=== PATIENT | female | born 2005 | race African-American/Black ===

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

== ENCOUNTER 2024-01-04 15:54 | Emergency (ER) | payer OTHER, SELFPAY ==
[2024-01-04 16:01] VITALS: BP 120/80; PULSE 115; RESP 20; TEMP 37.1; O2SAT 100
--- NOTE | 2024-01-04 16:39 | ED.URI ---
HPI - URI/Sore Throat General Chief Complaint: Upper Respiratory Infection Stated Complaint: SORE THROAT Time Seen by Provider: 01/04/24 16:29 Source: patient, RN notes reviewed and old records reviewed Mode of arrival: ambulatory Limitations: no limitations History of Present Illness HPI Narrative: Patient presents today complaining of a one-month history of sore throat, headache, nausea, chills, fatigue cough postnasal drip. She was initially seen at [facility] on 12/06/2023 where her rapid strep was negative, but she was treated with a course of amoxicillin for tonsillitis. States her body symptoms improved, but her throat never did. She was seen again on 12/15/2023 and was diagnosed with allergies and a viral URI. She has been taking Benadryl and ibuprofen at home without much relief and currently rates her pain 8/10. Denies concerns for STIs in the throat. Related Data Home Medications Medication Instructions Recorded Confirmed norethindrone (contraceptive) 0.35 0.35 mg PO DAILY 12/06/23 01/04/24 mg tablet Allergies Allergy/AdvReac Type Severity Reaction Status Date / Time No Known Allergies Allergy Verified 01/04/24 16:21 Review of Systems Review of Systems: CONSTITUTIONAL: Denies fever, or sweats.+ fatigue, chills EYES: Denies visual changes, redness, or discharge. ENT: Denies rhinorrhea, congestion, or otalgia.+ sore throat, postnasal drip CARDIOVASCULAR: Denies chest pain, palpitations, or edema. RESPIRATORY: Denies cough or dyspnea. GASTROINTESTINAL: Denies abdominal pain, vomiting, or diarrhea.+ nausea GENITOURINARY: Denies dysuria or hematuria. SKIN: Denies rash, itching, or wounds. MUSCULOSKELETAL: Denies back pain, joint pain, or myalgia. NEUROLOGIC: Denies numbness, tingling, or weakness. +headache PSYCH: Denies depression or anxiety. [facility] Past Medical History Medical History Left knee pain Surgical History Surgical History History of kidney surgery Social History Social History Smoking status: Never smoker Alcohol intake: current Alcohol use details: socially Substance use: current Substance use type: marijuana Do You Feel Safe in your Home?: Yes Lack of Transportation: No Lack of Food: Never True Current Housing: I Have Housing Concerned About Future Housing: No Difficulty Paying Gas/Electric Bills: No Difficulty Paying for Meds: No Currently Unemployed: No Education: High School Diploma/GED Difficulty w/ Childcare or Family Care: No Living arrangements: with family Occupation/Education: student Comments At time of signature, I have reviewed and agree with nursing past medical, surgical, social and family history unless otherwise noted. Please see nursing chart for further information. There is no relevant family history pertinent to the presenting complaint Exam Narrative: GENERAL: Well-appearing, well-nourished, and in no acute distress. HEAD: Normocephalic, atraumatic. EYES: EOMI. No redness or drainage. Conjunctivae normal. ENT: Mucous membranes pink and moist. Nares clear. No rhinorrhea. TMs normal bilaterally. Throat mildly erythematous. Tonsils 1+ with white exudate. Uvula midline. NECK: Normal AROM. Supple. No lymphadenopathy. CHEST: No respiratory distress. Clear to auscultation. HEART: Regular rate and rhythm. No murmur appreciated. EXTREMITIES: Normal range of motion. No edema. SKIN: Warm, dry, no rash. Capillary refill normal. Normal skin turgor. NEURO: No focal deficits. Alert and oriented x3. Gait steady. PSYCH: Normal affect. No signs of depression or anxiety. Course Course Level of Care: Express Care Visit Vital Signs Vital signs: Vital Signs Temperature 98.8 F 01/04/24 16:01 Pulse Rate 115 H 01/04/24 16:01
== END 2024-01-04 17:08 | disposition home or self-care (01) ==
PROVIDERS: Emergency Provider Nurse Practitioner
DX: J02.9 Acute pharyngitis, unspecified (principal)
CPT/HCPCS: 36416; 86308; 87081; 87880; 99213; G0463